=== PATIENT | female | born 1985 | race Caucasian/White ===

== ENCOUNTER 2016-10-16 22:20 | Emergency (ER) | payer MEDICARE ==
--- NOTE | ~2016-10-16 | ER ---
[facility] 31 Y [address] ROOM: [place] [address] LOCATION: ED ADMIT DATE: 10/16/2016 ER/Outpatient Report DISCHARGE DATE: 10/16/2016 FAMILY PHYSICIAN: Physician, Unknown ATTENDING PHYSICIAN: Tamanna Montesinos Admission date and time documented on the medical record. I saw the patient at 2230 hours. CHIEF COMPLAINT: Nausea, vomiting. HISTORY OF PRESENT ILLNESS: This patient is a 31-year-old female who just prior to admission to the emergency room had acute onset of nausea, vomiting. No diarrhea. No abdominal pain. No back pain. No chest pain, shortness of breath. No fall or trauma. Prior to this acute onset, she was doing well. Family members had the flu. No lightheadedness, dizziness, syncope, or near syncope. No joint or muscle swelling, redness or pain. No skin eruptions or rash. Does have a history of anxiety and depression, bipolar disorder, mood disorder. No neuro changes. No endocrine problems. HOME MEDICATIONS: See attached medication list. ALLERGIES: NONE. SOCIAL HISTORY: The patient smokes a pack of cigarettes per day. Nondrinker. SIGNIFICANT PAST MEDICAL HISTORY: Tobacco abuse, bipolar disorder, depression, anxiety, mood disorder. OPERATIONS: Tubal ligation, cervical cone biopsy. REVIEW OF SYSTEMS: All systems reviewed by me are negative with the exception of those discussed in the history of present illness. PHYSICAL EXAMINATION: VITAL SIGNS: Temperature 98.5 tympanic, pulse 115, respirations 20, blood pressure 130/53, O2 saturation on room air is 93%. HEAD: Normocephalic. PATIENT'S NAME: FRANCESCO JOHN [facility] AGE: 31 Y [address] ROOM: [place] [address] LOCATION: ED ADMIT DATE: 10/16/2016 ER/Outpatient Report DISCHARGE DATE: 10/16/2016 FAMILY PHYSICIAN: Physician, Unknown ATTENDING PHYSICIAN: Tamanna Montesinos Eyes: Clear. EARS: Clear TMs bilaterally. NOSE: Clear. THROAT: Clear. Mucous membranes moist. NECK: No nuchal rigidity. No thyromegaly or cervical adenopathy. No tenderness. SPINE: Negative. LUNGS: Clear. HEART: Regular. Pulses are palpable. ABDOMEN: Soft, nondistended, nontender. Active bowel tones. No organomegaly or abnormal mass palpable. EXTREMITIES: Intact. NEUROVASCULAR: Intact. SKIN: Clear. No skin eruptions or rash. LABORATORY DATA: White count is 16,000, 65 segs, 28 lymphs, 6 monos, 1 eos. Hemoglobin is 13.5, with hematocrit 40.3, platelet count is 371,000. CMS was normal except for a low potassium of 3.6. Elevated glucose 113. Elevated AST of 61. Amylase and lipase were normal. CRP was normal at 0.62. EMERGENCY DEPARTMENT COURSE: I did start the patient on IV normal saline and fluids. Did give her Zofran 8 mg IV in the emergency room for nausea and vomiting, Phenergan 50 mg IM in the emergency room for nausea and vomiting. IMPRESSION: Nausea and vomiting. PLAN: The patient dismissed home. Observation. Activity as tolerated. Clear liquid diet for 24 hours and advance diet as tolerated. Continue present home medications and care. Zofran as needed for nausea and vomiting. Lomotil as needed for diarrhea. Follow up with personal physician as needed. Discussion ensued with the patient concerning my findings and recommendations, she understands. TAMANNA MONTESINOS MD SDS/modl PATIENT'S NAME: FRANCESCO JOHN [facility] AGE: 31 Y [address] ROOM: [place], [place] [address] LOCATION: ED ADMIT DATE: 10/16/2016 ER/Outpatient Report DISCHARGE DATE: 10/16/2016 FAMILY PHYSICIAN: Physician, Unknown ATTENDING PHYSICIAN: Tamanna Montesinos /[id number] d: 10/17/169 t: 10/17/16 1809, OUTPATIENT REPORT
[2016-10-16 22:36] LABS: BASOPHIL # 0.1 K/uL (0.0-0.2); BASOPHIL % 0.3 %; EOSINOPHIL # 0.1 K/uL (0.0-0.5); EOSINOPHIL % 0.7 %; HEMATOCRIT 40.3 % (33.0-46.0); HEMOGLOBIN 13.5 g/dL (11.0-15.0); IMMATURE GRANULOCYTE # 0.1 K/uL (0.0-0.3); IMMATURE GRANULOCYTE % 0.7 %; LYMPHOCYTE # 4.5 K/uL (0.8-4.0); LYMPHOCYTE % 28.1 %; MCH 30.7 pg (27.0-34.0); MCHC 33.5 gm/dL (32.0-36.5); MCV 91.6 fl (83.0-98.0); MONOCYTE # 0.9 K/uL (0.0-1.0); MONOCYTE % 5.5 %; MPV 9.2 fl (9.4-12.4); NEUTROPHIL # (ANC) 10.4 K/uL (1.8-7.8); NEUTROPHIL % 64.7 %; NRBC % 0 /100WBC (0-0.00); PLATELET COUNT 371 K/uL (150-450); RDW-CV 13.8 % (11.9-14.6)
[2016-10-16 22:53] LABS: ALBUMIN 3.6 gm/dL (3.5-5.0); ANION GAP 14.6 (10.0-19.0); CALCIUM 8.7 mg/dL (8.5-10.5); POTASSIUM 3.6 mMol/L (3.7-5.1); TOTAL BILIRUBIN 0.4 mg/dL (0.0-1.5)
== END 2016-10-16 23:40 | disposition disaster alternative care site (69) ==
LOC: GMED 22:20
PROVIDERS: Emergency Medicine
DX: R11.2 Nausea with vomiting, unspecified (principal); F17.210 Nicotine dependence, cigarettes, uncomplicated; F32.9 Major depressive disorder, single episode, unspecified; F41.9 Anxiety disorder, unspecified; Z79.899 Other long term (current) drug therapy; Z98.890 Other specified postprocedural states; Z98.51 Tubal ligation status
CPT/HCPCS: J2405; J2550; J7030

== ENCOUNTER → 2016-10-16 | Outpatient (CLI) | payer MEDICARE, MEDICAID ==
[~2016-10-16] MED LIST: ABILIFY2 MG PO; AMBIEN5 MG PO; EFFEXOR XR150 MG PO; MINIPRESS1 MG PO; MOBIC15 MG PO; NEURONTIN100 MG PO; SEROQUEL100 MG PO; SEROQUEL25 MG PO; [UNRECOGNIZED DRUG - OTHER] TOP
== END | disposition disaster alternative care site (69) ==
LOC: GAMB 21:57
DX: R11.2 Nausea with vomiting, unspecified (principal); Z79.899 Other long term (current) drug therapy; Z86.59 Personal history of other mental and behavioral disorders
CPT/HCPCS: A0422; A0425; A0427; J2405